=== PATIENT | male | born 1955 | race Caucasian/White ===

== ENCOUNTER → 2020-08-12 | Outpatient (CLI) | payer OTHER, BC ==
[~2020-08-12] MED LIST: ACYCLOVIR 400400 MG PO; B COMPLEX1 EACH PO; CAL-MAG TABLET1 EACH PO; DOXYCYCLINE HYC50 MG PO; FAMOTIDINE 20 M20 MG PO; MELATONIN3 M1 PO; MELOXICAM15 MG PO; METHYLPHENIDATE10 M2 PO; METHYLPHENIDATE40 M1 PO; VITAMIN D3100 MCG PO
== END ==
LOC: LAB 09:26
PROVIDERS: ATTEND Orthopaedic Surgery
DX: Z01.812 Encounter for preprocedural laboratory examination (principal); Z20.828 Contact with and (suspected) exposure to other viral communicable diseases

== ENCOUNTER 2020-08-17 06:07 | Inpatient (IN) | payer OTHER, BC ==
[2020-08-06 09:28] LABS: HEMATOCRIT 41.1 % (42.0-52.0); HEMOGLOBIN 13.7 gm/dL (14.0-18.0); MCH 32.7 pg (26.0-34.0); MCHC 33.3 g/dL (28.0-37.0); MCV 98.4 fL (80.0-100.0); RBC 4.18 mil/uL (4.50-6.00); RDW 12.5 % (10.5-14.5); WBC 3.4 thou/uL (4.0-11.0)
[2020-08-06 09:35] LABS: URINE BILIRUBIN NEGATIVE (Negative); URINE BLOOD NEGATIVE (Negative); URINE CLARITY CLEAR; URINE COLOR YELLOW; URINE GLUCOSE-RANDOM* NEGATIVE (Negative); URINE KETONES NEGATIVE (Negative); URINE LEUKOCYTES-REFLEX NEGATIVE (Negative); URINE NITRITE-REFLEX NEGATIVE (Negative); URINE PROTEIN (DIPSTICK) NEGATIVE (Negative); URINE SPECIFIC GRAVITY 1.015 (1.005-1.035); URINE UROBILINOGEN 0.2 E.U./dl (0.2-1.0)
[2020-08-06 09:37] LABS: ALBUMIN 4.2 g/dL (3.4-5.0); CALCIUM 8.8 mg/dL (8.5-10.1); POTASSIUM 4.4 mmol/L (3.5-5.1)
[2020-08-06 09:38] LABS: INR 1.1; PROTIME 11.2 Seconds (9.3-11.4)
--- NOTE | 2020-08-06 11:42 | EKG ---
[facility] [place] [address] ELECTROCARDIOGRAM REPORT Name: IJEOMA CHENG Room #: PRE [facility] M..#: [id number] Admission: Attend Phys: Barber Villalobos MD Discharge: Date of : 55 Report #: [id number] THIS REPORT FOR: cc: Omero Mckeon MD, Neal A. 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 Operator: FREDDIE : 1955 Requested By: Barber Villalobos Order Number: [id number] MD: Leighton Hodgson Measurements Intervals [place] Rate: 51 P: 81 WV: 203 QRS: -82 QRSD: 133 T: 71 QT: 459 QTc: 423 Interpretive Statements Sinus rhythm Nonspecific IVCD with LAD Minimal ST elevation, anterior leads No previous ECG available for comparison Electronically Signed On 08-06-2020 11:42:43 PRODUCT DEVELOPMENT ASSISTANT by Leighton Hodgson [email or web address] <ELECTRONICALLY SIGNED> By: Leighton Hodgson MD, [facility] 08/06/20 1142 4 Leighton Hodgson MD, [facility] /EPI
[2020-08-17] VITALS (8 sets, daily range): BP systolic 74–131; BP diastolic 44–83
[~2020-08-17] VITALS: Ht 182.9 cm; Wt 75.3 kg
--- NOTE | 2020-08-17 13:24 | NUR ---
assumed care at 1105. pt is a&o x4. pt is on hip precaution and has a pillow between legs. when pt came on the floor, pt denies nausea or vomitting and drank his smoothie and then complains about nausea, lightheadnesses after drinking smoothie. pt was complaining of pain and was given oxycodone. pt blood pressure started to drop after given oxycodone. bp was going to 76's. fluids were started and bp is going up. hemovac drain is intact. scd/dhruv hose are in place. maximus dressing is intact. left wrist iv is intact and shows no signs of redness or swelling. fall precaution. call light within reach. pt denies soa. zofran was given to pt and nausea helped pt. hob elevated. dressin g on hip is intact and shows no signs of drainage. li continue to monitor blp.
--- NOTE | 2020-08-18 05:19 | NUR ---
PT ALERT AND ORIENTED. R HIP WITH ARTURO DRSG C/D/I. TEDS AND SCDS IN PLACE. PT BEEN USING URINAL WITH INCREASING AND ADEQUATE AMOUNTS OF U/O.PAIN WAS BEING MANAGED WITH MORPHINE WELL PO MEDS BUT THIS MORNING PATIENT DOING OKAY WITHOUT THE MORPHINE. USES CPAP@NOC. AFEBRILE. IV FLUIDS AND IV ABTS GIVEN.ROOM AIR.NO FURTHER CONCERNS.
[2020-08-18 06:03] LABS: HEMATOCRIT 36.4 % (42.0-52.0); HEMOGLOBIN 12.3 gm/dL (14.0-18.0); MCH 32.9 pg (26.0-34.0); MCHC 33.7 g/dL (28.0-37.0); MCV 97.7 fL (80.0-100.0); RBC 3.73 mil/uL (4.50-6.00); RDW 12.4 % (10.5-14.5); WBC 8.5 thou/uL (4.0-11.0)
--- NOTE | 2020-08-18 08:13 | O ---
[facility] [place] [address] OPERATIVE REPORT Name: IJEOMA CHENG Room #: 447-P [facility] IN M.R.#: [id number] Admission: 08/17/20 Attend Phys: Barber Villalobos MD Discharge: Date of : 55 Report #: [id number] THIS REPORT FOR: cc: Omero Mckeon MD, Neal A. MD Clymer,Barber Faria MD ~ DATE OF SERVICE: 08/17/2020 PREOPERATIVE DIAGNOSIS: End-stage degenerative arthritis, right hip. POSTOPERATIVE DIAGNOSIS: End-stage degenerative arthritis, right hip. PROCEDURE: Right total hip arthroplasty. SURGEON: Barber Villalobos MD INDICATIONS: This slender, fit and active 65-year-old gentleman has severe degenerative arthritis involving the right hip. He has similar, but less severe arthritis in the opposite hip as well. He also has moderate generalized degenerative spondylosis. All these problems caused significant ongoing symptoms, but his primary complaint at this point is right hip pain. He has elected to go ahead with right total hip replacement. DESCRIPTION OF PROCEDURE: The patient was taken to the operating room where he was placed under a spinal anesthetic. Very limited additional sedation was administered at his request. He was then positioned in the left lateral decubitus position. The right hip, thigh and leg were meticulously prepped and draped. A slightly curving posterolateral skin incision was made centered over the greater trochanter. This was carried through fascia and gluteus to expose the posterior aspect of the hip joint. The short external rotators and capsule were taken down and preserved and tagged with several #1 Tevdek sutures. The hip was dislocated posteriorly. Marked degenerative change on both the femoral head and acetabulum was noted. A femoral neck osteotomy was performed and then the canal was prepared using the Butler and Nephew hip system and using reamers and hand broaches. The size 16 femoral stem broach seemed to fit most appropriately. The calcar was trimmed down to an appropriate level. Attention was then directed to the acetabulum. Adequate exposure was established and then the acetabulum was sequentially reamed, gradually advancing to a 62 mm reamer. A Butler and Nephew size 62 3-hole StikTite shell was then inserted, positioning this in alignment with his true acetabulum, which placed this at about 45 degrees off of vertical and at about 20 degrees of anteversion. It was impacted into position and seated nicely and appeared to be secure. In addition, 3 cancellous screws were placed through the apical holes engaging good periacetabular bone adding to stability. A trial reduction was performed and the size 16 stem with a high offset neck length seemed to fit most [address] [address] OPERATIVE REPORT Name: IJEOMA CHENG Room #: 447-P [facility] IN M.R.#: [id number] Admission: 08/17/20 Attend Phys: Barber Villalobos MD Discharge: Date of : 55 Report #: [id number]. A +0 neck length resulted in good alignment, range of motion, stability and leg length. The trial component was removed and the Butler and Nephew size 16 Synergy high offset femoral stem was inserted, placing this in about 15-20 degrees of anteversion. It seated nicely and appeared to be secure. A 40 mm Oxinium head with a +0 neck length sleeve were then inserted. This was impacted on the Chacon taper and seated nicely and appeared to be secure. The hip was reduced and once again alignment, range of motion, stability and leg length were assessed and felt to be satisfactory. The wound was copiously irrigated. Good hemostasis was established. The short external rotators and capsule were then repaired back to bone using the #1 Tevdek sutures, passed through small drill holes in the greater trochanter, this added nicely the hip stability. A single Hemovac was left in the wound exiting through a separate stab incision. The fascia was then closed with multiple #1 Vicryl sutures. Subcutaneous tissues were closed with 0 Monocryl. The skin was closed with skin jonathan. The patient was then returned to the recovery room in good condition. He remained alert throughout the procedure and tolerated this well. X-rays are pending at the time of this dictation. <ELECTRONICALLY SIGNED> By: Barber Villalobos MD 08/18/20 0813 1013 1031 Barber Villalobos MD /nt
[2020-08-18 08:17] LABS: CALCIUM 8.1 mg/dL (8.5-10.1); CREATININE 0.9 mg/dL (0.7-1.3); MAGNESIUM 1.7 mg/dL (1.8-2.4)
--- NOTE | 2020-08-18 10:19 | NUR ---
ASSESSMENT: CM REVIEWED CHART AND MET WITH PATIENT. PT IS ALERT AND ORIENTED X4. PT IS S/P TOTAL HIP REPLACEMENT. PT REPORTS HE LIVES AT HOME WITH HIS AND TWO GRANDCHILDREN. PT REPORTS LIVING IN A SPLIT LEVEL HOME. HE STATES ABOUT 14 TOTAL STEPS WITH HANDRAILS. PT REPORTS THAT HE HAS A CANE AND WALKER AT HOME FOR AMBULATION. PT REPORTS THAT HE HAS BEEN TALKING WITH [facility] AND IS WANTING TO USE THEM FOR HOME HEALTH AT DISCHARGE. CM FAXED REFERRAL TO [facility]. CM WILL CONTINUE TO FOLLOW TO ASSIST NEEDED.
[2020-08-18 11:13] VITALS: BP 131/74
--- NOTE | 2020-08-18 19:48 | NUR ---
PT CARE ASSUMED AT 0700. A&Ox4. ARTURO DRESSING INTACT. ICEPACK IN PLACE. TEDHOSES/SCD'S IN PLACE. PT UP WITH PT TWICE TODAY. PT REEDUCATED THAT THE PAIN MEDICATION IS NOT SCHEDULED AND THAT A PAIN SCALE OF 2 IS VERY GOOD ON POST OP DAY 2 AFTER REQUESTING PAIN MEDICATION TO STAY ON TOP OF IT. PT METHAMPHETAMINE FOUND IN ROOM AND SENT TO PHARMACY TO IDENTIFY AND LABEL. SMALL ZIPLOCK BAG FULL OF PILL LOCATED AND PER PHARMACY SET IN PT IV BIN AND LABELED. RETURN WHEN PT DISCHARGES. IV PATENT WITH NO REDNESS OR EDEMA, SALINE LOCKED. PT STATED THAT HE HAS AWOKEN FROM HIS LEG JERKING AND THAT HE HAS UNDIAGNOSED RESTLESS LEG SYDROME. RN RECEIVED A CALL FROM DR. ABDI NURSE STATING THAT PT IS IN THE ROOM IN PAIN AND NEEDS TO BE MEDICATED. AFTER EXPLAINING WHAT HAPPENED AND THAT THE PATIENT IS REQUESTING CLONAZEPAM FOR HIS JERKING SHE STATED THAT THE PT CAN HAVE A ONE TIME DOSE. THIS ORDER WAS NEVER ENTERED. PT CALLED RN TO INFORM HER THAT HIS RESIDENTIAL APPRAISER STATED THAT HE NEEDS TO BE ON GABAPENTIN ON CLONAZEPAM. DR. BIRD INFORM OF THIS REQUEST. PT CONTINUES TO CALL OUTSIDE DOCTORS FOR MEDICAL ADVICE. DR. BIRD INFORMED. CALL LIGHT IN REACH. FALL PROTOCOL IN PLACE. REPORT GIVEN TO DONA CHEEMA. HEMOVAC REMOVED TODAY. WITH 100CC OUTPUT.
[2020-08-18 20:05] VITALS: BP 123/58
[2020-08-19 05:20] VITALS: BP 119/58
[2020-08-19 06:23] LABS: HEMATOCRIT 34.4 % (42.0-52.0); HEMOGLOBIN 11.6 gm/dL (14.0-18.0); MCH 32.7 pg (26.0-34.0); MCHC 33.8 g/dL (28.0-37.0); MCV 96.7 fL (80.0-100.0); RBC 3.56 mil/uL (4.50-6.00); RDW 12.2 % (10.5-14.5); WBC 8.7 thou/uL (4.0-11.0)
--- NOTE | 2020-08-19 07:45 | NUR ---
PT WALKED IN ROOM WITH ENFORCEMENT MANAGER BEFORE GOING TO BED. PT WAS GIVEN MELATONIN@ BEDTIME AND HE SLEPT THRO [facility]. GOT UP SEVERAL TIMES TO USE URINAL. HE GOT OXYCODONE ONE TIME AT BEDTIME AND THEN THIS MORNING. HE DID NOT WAKE UP AT [facility] WITH COMPLAINS OF RLS OR INCREASED PAIN. R HIP WITH ARTURO MARI C/D/I.
[2020-08-19 07:50] VITALS: BP 105/55
--- NOTE | 2020-08-19 10:37 | NUR ---
PT CARE ASSUMED AT 0700. A&Ox4. PT UP WITH PT WALKING THE HALLS. PAIN CONTROLLED WELL WITH PAIN REGIMENT ON BOARD. UP IN THE RECLINER FOR BREAKFAST. PT TO WALK WITH PT ONE MORE TIME THIS AFTERNOON TO GET CLEARED TO GO HOME. IV PATENT WITH NO REDNESS OR EDEMA, SALINE LOCKED.HOME MEDS FINISHED UP AND NONE LEFT TO RETURN TO PATIENT. PATIENTS VITAMINS IN ZIPLOCK BAG IN IV BIN. WILL RETURN WHEN DISCHARGING PATIENT. PATIENT DISCHARGE PAPERS GIVEN WITH NO FURTHER QUESTIONS FROM PATIENT. TEDHOSES/SCD'S IN PLACE. CALL LIGHT IN REACH. FALL PROTOCOL IN PLACE. WILL CONTINUE TO MONITOR UNTIL CLEARED BY PT.
[2020-08-19 11:19] VITALS: BP 131/74
--- NOTE | 2020-08-19 14:19 | NUR ---
on-going assessment: CM REVIEWED CHART. PT HAS ORDERS TO DISCHARGE HOME TODAY WITH HH. [facility] HAS ACCEPTED AND CM FAXED D/C ORDERS TO THEM AND NOTIFIED [facility] OF DISCHARGE. PT REPORTS NO FURTHER NEEDS FROM .
--- NOTE | 2020-08-20 16:00 | D ---
[facility] [place] [address] DISCHARGE SUMMARY Name: IJEOMA CHENG Room #: 447-P [facility] IN .R.#: [id number] Admission: 08/17/20 Attend Phys: Barber Villalobos MD Discharge: 08/19/20 Date of : 55 Report #: [id number] THIS REPORT FOR: cc: Omero Mckeon MD, Neal A. MD Clymer,Barber Faria MD ~ DATE OF SERVICE: 08/19/2020 FINAL DIAGNOSIS: End-stage degenerative arthritis, right hip. OPERATION PROCEDURES: Right total hip replacement. HISTORY OF PRESENT ILLNESS: This slender, active, fit 65-year-old gentleman presents with progressive right hip pain. Clinical exam and x-rays confirmed severe end-stage degenerative arthritis. He also has severe arthritis involving the left hip and the back. The right hip is the more significant current problem and he has elected to go ahead with right total hip replacement. HOSPITAL COURSE: The patient was admitted and taken to the operating room on 08/17/2020. He underwent right hip replacement, which he tolerated well. Postoperatively, he did have some pain and restless leg problems, which were managed with medications. He was able to resume a regular diet. He was started on therapy and has made good progress. He seems safe and functional and independent with a walker. Today, he is back on a regular diet. DISCHARGE MEDICATIONS: Include doxycycline 50 mg daily, methylphenidate 40 mg daily, famotidine 20 mg daily, acyclovir 400 mg daily, vitamin D3 100 mcg daily, melatonin 3 mg daily, hydrocodone 10 mg q. 6 hours as needed for pain, Xarelto 10 mg daily. DISCHARGE INSTRUCTIONS: He will continue a regular diet. He plans for assistance at home with some visiting home physical therapy. He is instructed to call me if there are any problems or questions. I will plan to see him back in my office in 1 week. <ELECTRONICALLY SIGNED> By: Barber Villalobos MD 08/20/201599 0940 Barber Villalobos MD /nt
== END 2020-08-19 14:26 | disposition home health service (06) | DRG 470 ==
LOC: 4S 06:07 → OR 06:07 → TBA 06:07 → OR 08:52 → 4S 11:10 → OR 11:11 → 4S 11:11 → OR 12:18 → 4S 08-19 14:26
PROVIDERS: ADMIT Orthopaedic Surgery; ATTEND Orthopaedic Surgery
PROC: 0SR906Z Replacement of Right Hip Joint with Oxidized Zirconium on Polyethylene Synthetic Substitute, Open Approach (ICD-10-PCS; principal; 2020-08-17)
PROC: 5A09357 Assistance with Respiratory Ventilation, Less than 24 Consecutive Hours, Continuous Positive Airway Pressure (ICD-10-PCS; principal; 2020-08-17)
DX: M16.11 Unilateral primary osteoarthritis, right hip (principal); K21.9 Gastro-esophageal reflux disease without esophagitis; G47.30 Sleep apnea, unspecified; F90.9 Attention-deficit hyperactivity disorder, unspecified type; Z79.899 Other long term (current) drug therapy
CPT/HCPCS: 10195; 50010; 50101; 50382; 50414; 51412; 53000; 53368; 56521; 56525; 56530; 57095; 57103; 62110; 62850; 65085; 70005

== ENCOUNTER → 2021-08-10 | Outpatient (CLI) | payer OTHER, BC ==
[~2021-08-10] MED LIST changes: +FLONASE 0.05%50 MCG NASAL; +GUAIFENESIN400 MG PO; +MOBIC7.5 MG PO; +MULTI VITAMIN1 EACH PO; +NEURONTIN300 MG PO; +TERBINAFINE HC250 MG PO; +VITAMIN C1000 MG PO; -VITAMIN D3100 MCG PO; +VITAMIN D3125 MC2 PO; +ZINC30 MG PO
[2021-08-10 09:35] LABS: HEMATOCRIT 40.3 % (42.0-52.0); HEMOGLOBIN 13.3 gm/dL (14.0-18.0); MCH 32.5 pg (26.0-34.0); MCHC 33.1 g/dL (28.0-37.0); MCV 98.2 fL (80.0-100.0); RBC 4.11 mil/uL (4.50-6.00); RDW 12.5 % (10.5-14.5); WBC 3.2 thou/uL (4.0-11.0)
[2021-08-10 09:41] LABS: URINE BILIRUBIN NEGATIVE (Negative); URINE BLOOD NEGATIVE (Negative); URINE CLARITY CLEAR; URINE COLOR YELLOW; URINE GLUCOSE-RANDOM* NEGATIVE (Negative); URINE KETONES NEGATIVE (Negative); URINE LEUKOCYTES-REFLEX NEGATIVE (Negative); URINE NITRITE-REFLEX NEGATIVE (Negative); URINE PROTEIN (DIPSTICK) NEGATIVE (Negative); URINE SPECIFIC GRAVITY 1.015 (1.005-1.035); URINE UROBILINOGEN 0.2 E.U./dl (0.2-1.0)
[2021-08-10 09:46] LABS: CALCIUM 8.6 mg/dL (8.5-10.1); CREATININE 0.9 mg/dL (0.7-1.3); INR 1.08; PROTIME 11.7 Seconds (10.5-12.1)
--- NOTE | 2021-08-10 12:25 | EKG ---
[place] [address] [place] [address] ELECTROCARDIOGRAM REPORT Name: IJEOMA CHENG Room #: REG ELIJAH Quintana#: [id number] Admission: 08/10/21 Attend Phys: Barber Villalobos MD Discharge: Date of : 55 Report #: [id number] [facility] Test Date: 2021-08-10 Test Time: 09:02:17 Pat Name: IJEOMA CHENG Department: Room: Gender: Accounting Representative: ALISA : 1955 Requested By: Barber Villalobos Order Number: [id number] MD: Leighton Hodgson Measurements Intervals [place] Rate: 54 P: 74 RI: 206 QRS: -84 QRSD: 139 T: 67 QT: 458 QTc: 435 Interpretive Statements Sinus rhythm Compared to ECG 08/06/2020 09:15:37 No significant changes Electronically Signed On 08-10-2021 12:25:18 SUPERVISOR SIGN SHOP by Leighton Hodgson [email or web address] <ELECTRONICALLY SIGNED> By: Leighton Hodgson MD, [facility] 08/10/21 1225 0902 0902 Leighton Hodgson MD, FACC /EPI
== END ==
LOC: PAC 08:05
PROVIDERS: ATTEND Orthopaedic Surgery
DX: S62.601A Fracture of unspecified phalanx of left index finger, initial encounter for closed fracture (principal); M16.12 Unilateral primary osteoarthritis, left hip; M46.96 Unspecified inflammatory spondylopathy, lumbar region; M51.36 Other intervertebral disc degeneration, lumbar region; M48.8X2 Other specified spondylopathies, cervical region; M48.8X6 Other specified spondylopathies, lumbar region; M16.0 Bilateral primary osteoarthritis of hip; M48.8X4 Other specified spondylopathies, thoracic region; Z96.641 Presence of right artificial hip joint; X58.XXXA Exposure to other specified factors, initial encounter; Y92.89 Other specified places as the place of occurrence of the external cause; Y93.89 Activity, other specified; Y99.8 Other external cause status